=== PATIENT | male | born 1935 | race African-American/Black ===

== ENCOUNTER 2017-10-24 10:10 | Inpatient (IN) ==
[2017-10-24 13:45] LABS: Basophils % 0.3 % (0.0-0.8); Eosinophils # 0.6 10*3/uL (0.0-0.87); Eosinophils % 9.4 % (0.00-10.9); Hematocrit 35.1 VOL% (42.0-52.0); Immature Granulocytes % 0.3 %; Immature Granulocytes Absolute 0.02 #; Lymphocytes # 2.2 10*3/uL (1.4-4.0); Lymphocytes % 35.2 % (21.2-54.2); Mean Corpuscular HGB Conc 31.3 GM/DL (32-36); Mean Corpuscular Hemoglobin 34 PG (27-34); Mean Corpuscular Volume 108.7 FL (87-102); Mean Platelet Volume 10.4 FL (9.6-12.0); Monocytes # 0.8 10*3/uL (0.11-0.8); Monocytes % 12.2 % (1.7-12.7); Neutrophils # 2.6 10*3/uL (1.4-7.4); Neutrophils % 42.6 % (38.7-73.9); Platelet Count 185 T/CUMM (130-400); Red Blood Count 3.23 MC/CUMM (3.8-5.5); Red Cell Distribution Width 12.8 % (9.3-17.3); White Blood Count 6.1 T/CUMM (4-12)
[2017-10-24 13:56] LABS: PT Patient Result 10.4 SECS
[2017-10-24 14:18] LABS: Alanine Aminotransferase 15 U/L (16-61); Albumin 4.1 G/DL (3.4-5.0); Alkaline Phosphatase 89 U/L (45-117); Aspartate Amino Transferase 23 U/L (0-37); Bilirubin,Total < 0.39 MG/DL (0.2-1.0); Blood Urea Nitrogen 25 MG/DL (7-18); Calcium 9.4 MG/DL (8.5-10.1); Glucose 84 MG/DL (74-106); Osmolality,Calculated 279.5 MOS/KG (273-304); Sodium 139 MMOL/L (136-145); Total Protein 8.1 G/DL (6.4-8.3); Troponin I Only 0.377 NG/ML (0.00-0.045)
[2017-10-24] MEDS ORDERED: SODIUM CHLORIDE 0.9% 500 ML IV STA (14:19)
[2017-10-24] MEDS ORDERED: ALUM/MAG/SIMETH/LIDO VISC 1:1 30 ML BOTTLE PO STA (14:19)
[2017-10-24] MEDS ORDERED: ASPIRIN 325 MG TABLET PO STA (14:19)
[2017-10-24 14:20] LABS: Potassium 6.6 MMOL/L (3.5-5.1)
[2017-10-24] MEDS ORDERED: ASPIRIN 325 MG TABLET ONE (14:28)
[2017-10-24] MEDS ORDERED: ALUM/MAG/SIMETH/LIDO VISC 1:1 30 ML BOTTLE PO ONE (14:29)
[2017-10-24] MEDS ORDERED: CALCIUM CHLORIDE 1,000 MG/10 ML SYRINGE IV STA (14:51)
[2017-10-24 15:05] LABS: Calcium 9.4 MG/DL (8.5-10.1); Osmolality,Calculated 282.5 MOS/KG (273-304)
[2017-10-24] MEDS ORDERED: CALCIUM CHLORIDE 1,000 MG/10 ML SYRINGE IV ONE (15:05)
[2017-10-24] MEDS ORDERED: SODIUM POLYSTYRENE SULFATE 15 GM/60 ML BOTTLE PO STA (16:29)
[2017-10-24] MEDS ORDERED: SODIUM POLYSTYRENE SULFATE 15 GM/60 ML BOTTLE ONE (17:08)
[2017-10-24] MEDS ORDERED: ACETAMINOPHEN 325 MG TABLET PO PRN (17:11)
[2017-10-24] MEDS ORDERED: ONDANSETRON 4 MG/2 ML VIAL IV PRN (17:11)
[2017-10-24] MEDS ORDERED: BISACODYL 5 MG TABLET PO PRN (17:11)
[2017-10-24] MEDS ORDERED: MAGNESIUM SULF RIDER 2 GM in PREMIX 1 EACH IV PRN (17:11)
[2017-10-24] MEDS ORDERED: INSULIN REGULAR 100 UNIT/ML SUBCUT ONE (17:11)
[2017-10-24] MEDS ORDERED: POTASSIUM CHLORIDE 20 MEQ TABLET PO PRN (17:11)
[2017-10-24] MEDS ORDERED: MAGNESIUM HYDROXIDE SUSP 30 ML UDCUP PO PRN (17:11)
[2017-10-24] MEDS ORDERED: ENOXAPARIN 80 MG/0.8 ML SYRINGE SUBCUT STA (17:15)
[2017-10-24] MEDS ORDERED: ENOXAPARIN 80 MG/0.8 ML SYRINGE SUBCUT ONE (17:24)
[2017-10-24] MEDS ORDERED: TEMAZEPAM 15 MG CAPSULE PO PRN (17:25)
[2017-10-24] MEDS ORDERED: ATORVASTATIN 40 MG TABLET PO STA (17:27)
[2017-10-24] MEDS ORDERED: diphenhydrAMINE CAP 25 MG CAPSULE PO PRN (17:29)
[2017-10-24] MEDS ORDERED: DOCUSATE SODIUM 100 MG CAPSULE PO PRN (17:30)
[2017-10-24] MEDS ORDERED: NITROGLYCERIN 2% OINT 1 INCH/GM PACK TOP ONE (19:02)
[2017-10-24] MEDS ORDERED: ATORVASTATIN 40 MG TABLET ONE (19:02)
[2017-10-24] MEDS: NITROGLYCERIN 2% OINT 1 INCH/GM PACK TOP SCH (19:03)
[2017-10-24 19:29] LABS: Calcium 10.4 MG/DL (8.5-10.1); Osmolality,Calculated 280.5 MOS/KG (273-304)
[2017-10-24 19:33] LABS: Potassium 6.1 MMOL/L (3.5-5.1)
[2017-10-24] MEDS: GABAPENTIN 400 MG CAPSULE PO SCH (22:17)
[2017-10-24] MEDS: FLUTICASONE/SALMETEROL 250-50 DISKUS 14 DOSE INH SCH (22:58)
[2017-10-24] MEDS: SODIUM CHLORIDE 0.45% 1,000 ML IV SCH (22:58)
[2017-10-25 05:40] LABS: Basophils % 0.6 % (0.0-0.8); Eosinophils # 0.5 10*3/uL (0.0-0.87); Eosinophils % 9.9 % (0.00-10.9); Hematocrit 29.2 VOL% (42.0-52.0); Hemoglobin 9.3 GM/DL (14.0-18.0); Immature Granulocytes % 0.2 %; Immature Granulocytes Absolute 0.01 #; Lymphocytes # 2.7 10*3/uL (1.4-4.0); Lymphocytes % 49.6 % (21.2-54.2); Mean Corpuscular HGB Conc 31.8 GM/DL (32-36); Mean Corpuscular Hemoglobin 35 PG (27-34); Mean Corpuscular Volume 108.6 FL (87-102); Monocytes # 0.6 10*3/uL (0.11-0.8); Monocytes % 11.4 % (1.7-12.7); Neutrophils # 1.5 10*3/uL (1.4-7.4); Neutrophils % 28.3 % (38.7-73.9); Platelet Count 171 T/CUMM (130-400); Red Blood Count 2.69 MC/CUMM (3.8-5.5); Red Cell Distribution Width 12.7 % (9.3-17.3); White Blood Count 5.4 T/CUMM (4-12)
[2017-10-25 06:12] LABS: Band Neutrophils 1 % (0-10); Eosinophils 8 % (0-10); Lymphocytes 52 % (20-55); Platelet Estimate Normal; Segmented Neutrophils 33 % (50-85); Total Cells Counted 100
[2017-10-25 06:13] LABS: Macrocytosis 3+
[2017-10-25 06:23] LABS: Calcium 8.6 MG/DL (8.5-10.1); Osmolality,Calculated 282.4 MOS/KG (273-304); Risk Ratio 4.09; Thyroid Stimulating Hormone 1.92 uIU/ml (0.358-3.74); VLDL CHOLESTEROL 39.6 MG/DL
[2017-10-25 06:29] LABS: Potassium 6.3 MMOL/L (3.5-5.1)
[2017-10-25] MEDS ORDERED: SODIUM POLYSTYRENE SULFATE 15 GM/60 ML BOTTLE PO STA ×2 (07:44→08:22)
[2017-10-25] MEDS: OXYBUTYNIN XL 5 MG TABLET PO SCH (08:08)
[2017-10-25] MEDS: TAMSULOSIN 0.4 MG CAPSULE PO SCH (08:08)
[2017-10-25] MEDS: PANTOPRAZOLE 40 MG TABLET PO SCH (08:08)
[2017-10-25] MEDS: MAGNESIUM OXIDE 400 MG TABLET PO SCH (08:08)
[2017-10-25] MEDS: MONTELUKAST 10 MG TABLET PO SCH (08:08)
[2017-10-25] MEDS: CETIRIZINE 10 MG TABLET PO SCH (08:08)
[2017-10-25] MEDS: ASPIRIN EC 81 MG TABLET PO SCH (08:08)
[2017-10-25] MEDS: glyBURIDE 5 MG TABLET PO SCH (08:09)
[2017-10-25] MEDS: NITROGLYCERIN 2% OINT 1 INCH/GM PACK TOP SCH ×4 (08:19→18:39)
[2017-10-25] MEDS: SODIUM CHLORIDE 0.45% 1,000 ML IV SCH ×3 (08:20→19:15)
[2017-10-25 08:39] LABS: CKMB % 2.3 %
[2017-10-25 08:42] LABS: Troponin I Only 2.3 NG/ML (0.00-0.045)
[2017-10-25 08:50] LABS: Calcium 8.8 MG/DL (8.5-10.1); Osmolality,Calculated 282.4 MOS/KG (273-304)
[2017-10-25 08:54] LABS: Potassium 6.1 MMOL/L (3.5-5.1)
[2017-10-25] MEDS ORDERED: amLODIPine 5 MG TABLET PO SCH (09:00)
[2017-10-25] MEDS: CARVEDILOL 3.125 MG TABLET PO SCH ×2 (09:19→21:34)
[2017-10-25] MEDS: GABAPENTIN 400 MG CAPSULE PO SCH ×2 (09:19→21:34)
[2017-10-25] MEDS: FLUTICASONE/SALMETEROL 250-50 DISKUS 14 DOSE INH SCH ×2 (09:19→21:31)
[2017-10-25] MEDS ORDERED: ENOXAPARIN 80 MG/0.8 ML SYRINGE SUBCUT ONE (10:30)
[2017-10-26] MEDS: SODIUM CHLORIDE 0.45% 1,000 ML IV SCH ×3 (03:15→11:32)
[2017-10-26] MEDS: NITROGLYCERIN 2% OINT 1 INCH/GM PACK TOP SCH ×4 (04:50→18:51)
[2017-10-26 05:17] LABS: Basophils % 0.6 % (0.0-0.8); Eosinophils # 0.6 10*3/uL (0.0-0.87); Eosinophils % 9.7 % (0.00-10.9); Hematocrit 29.8 VOL% (42.0-52.0); Hemoglobin 9.3 GM/DL (14.0-18.0); Immature Granulocytes % 0.3 %; Immature Granulocytes Absolute 0.02 #; Lymphocytes # 2.9 10*3/uL (1.4-4.0); Lymphocytes % 46.6 % (21.2-54.2); Mean Corpuscular HGB Conc 31.2 GM/DL (32-36); Mean Corpuscular Hemoglobin 33 PG (27-34); Mean Corpuscular Volume 106.8 FL (87-102); Mean Platelet Volume 10.5 FL (9.6-12.0); Monocytes # 0.8 10*3/uL (0.11-0.8); Monocytes % 12.9 % (1.7-12.7); Neutrophils # 1.8 10*3/uL (1.4-7.4); Neutrophils % 29.9 % (38.7-73.9); Platelet Count 166 T/CUMM (130-400); Red Blood Count 2.79 MC/CUMM (3.8-5.5); Red Cell Distribution Width 12.4 % (9.3-17.3); White Blood Count 6.2 T/CUMM (4-12)
[2017-10-26 06:09] LABS: Calcium 8.4 MG/DL (8.5-10.1); Osmolality,Calculated 279.5 MOS/KG (273-304); Potassium 5.7 MMOL/L (3.5-5.1)
[2017-10-26 06:14] LABS: Eosinophils 15 % (0-10); Hypochromasia 1+; Lymphocytes 47 % (20-55); Segmented Neutrophils 28 % (50-85); Total Cells Counted 100
[2017-10-26 06:15] LABS: Platelet Estimate Adequate
[2017-10-26] MEDS: FLUTICASONE/SALMETEROL 250-50 DISKUS 14 DOSE INH SCH ×2 (09:03→20:55)
[2017-10-26] MEDS: MONTELUKAST 10 MG TABLET PO SCH (09:04)
[2017-10-26] MEDS: TAMSULOSIN 0.4 MG CAPSULE PO SCH (09:04)
[2017-10-26] MEDS: OXYBUTYNIN XL 5 MG TABLET PO SCH (09:04)
[2017-10-26] MEDS: MAGNESIUM OXIDE 400 MG TABLET PO SCH (09:04)
[2017-10-26] MEDS: ASPIRIN EC 81 MG TABLET PO SCH (09:04)
[2017-10-26] MEDS: GABAPENTIN 400 MG CAPSULE PO SCH ×2 (09:04→20:54)
[2017-10-26] MEDS: PANTOPRAZOLE 40 MG TABLET PO SCH (09:05)
[2017-10-26] MEDS: CETIRIZINE 10 MG TABLET PO SCH (09:05)
[2017-10-26] MEDS: CARVEDILOL 3.125 MG TABLET PO SCH ×2 (09:05→20:54)
[2017-10-26] MEDS: glyBURIDE 5 MG TABLET PO SCH ×2 (09:05→09:08)
[2017-10-26 11:10] LABS: Apearance,Urine CLEAR (Clear); Bilirubin,Urine Negative (Negative); Blood, Urine Negative (Negative); Glucose,Urine (UA) Negative (Negative); Ketones,Urine Negative (Negative); Nitrite,Urine Negative (Negative); Protein,Urine Negative; Squamous Epithelial Cell,Urine Occasional /HPF (0-10); Urine Color Straw (Yellow); Urine Specific Gravity 1.008 (1.001-1.035); Urine Urobilinogen < 2.0 EU/DL (0.2-1.0); WBC,Urine <1 /HPF (0-6)
[2017-10-27] MEDS: NITROGLYCERIN 2% OINT 1 INCH/GM PACK TOP SCH ×4 (01:19→17:41)
[2017-10-27 05:43] LABS: Basophils % 0.7 % (0.0-0.8); Eosinophils # 0.5 10*3/uL (0.0-0.87); Eosinophils % 7.9 % (0.00-10.9); Hematocrit 30.1 VOL% (42.0-52.0); Hemoglobin 9.8 GM/DL (14.0-18.0); Immature Granulocytes % 0.3 %; Immature Granulocytes Absolute 0.02 #; Lymphocytes # 2.7 10*3/uL (1.4-4.0); Lymphocytes % 44.4 % (21.2-54.2); Mean Corpuscular HGB Conc 32.6 GM/DL (32-36); Mean Corpuscular Hemoglobin 35 PG (27-34); Mean Platelet Volume 10.3 FL (9.6-12.0); Monocytes # 0.9 10*3/uL (0.11-0.8); Monocytes % 14.4 % (1.7-12.7); Neutrophils % 32.3 % (38.7-73.9); Platelet Count 174 T/CUMM (130-400); Red Blood Count 2.84 MC/CUMM (3.8-5.5); Red Cell Distribution Width 12.2 % (9.3-17.3); White Blood Count 6.1 T/CUMM (4-12)
[2017-10-27 06:04] LABS: Calcium 8.6 MG/DL (8.5-10.1); Osmolality,Calculated 286.1 MOS/KG (273-304); Potassium 5.2 MMOL/L (3.5-5.1)
[2017-10-27 07:28] LABS: Eosinophils 11 % (0-10); Lymphocytes 47 % (20-55); Macrocytosis 3+; Platelet Estimate Normal; Segmented Neutrophils 38 % (50-85); Total Cells Counted 100
[2017-10-27] MEDS: glyBURIDE 5 MG TABLET PO SCH (08:05)
[2017-10-27] MEDS: ASPIRIN EC 81 MG TABLET PO SCH (08:59)
[2017-10-27] MEDS: GABAPENTIN 400 MG CAPSULE PO SCH ×2 (08:59→21:22)
[2017-10-27] MEDS: CETIRIZINE 10 MG TABLET PO SCH (08:59)
[2017-10-27] MEDS: CARVEDILOL 3.125 MG TABLET PO SCH ×2 (09:00→21:22)
[2017-10-27] MEDS: MONTELUKAST 10 MG TABLET PO SCH (09:00)
[2017-10-27] MEDS: OXYBUTYNIN XL 5 MG TABLET PO SCH (09:00)
[2017-10-27] MEDS: TAMSULOSIN 0.4 MG CAPSULE PO SCH (09:00)
[2017-10-27] MEDS: MAGNESIUM OXIDE 400 MG TABLET PO SCH (09:00)
[2017-10-27] MEDS: PANTOPRAZOLE 40 MG TABLET PO SCH (09:00)
[2017-10-27] MEDS: FLUTICASONE/SALMETEROL 250-50 DISKUS 14 DOSE INH SCH ×2 (09:03→21:23)
[2017-10-28] MEDS: NITROGLYCERIN 2% OINT 1 INCH/GM PACK TOP SCH ×5 (01:25→23:11)
[2017-10-28 04:57] LABS: Basophils % 0.5 % (0.0-0.8); Eosinophils # 0.6 10*3/uL (0.0-0.87); Eosinophils % 7.2 % (0.00-10.9); Hematocrit 31.2 VOL% (42.0-52.0); Hemoglobin 10.5 GM/DL (14.0-18.0); Immature Granulocytes % 0.3 %; Immature Granulocytes Absolute 0.02 #; Lymphocytes # 3.2 10*3/uL (1.4-4.0); Lymphocytes % 41.6 % (21.2-54.2); Mean Corpuscular HGB Conc 33.7 GM/DL (32-36); Mean Corpuscular Hemoglobin 35 PG (27-34); Mean Platelet Volume 10.6 FL (9.6-12.0); Monocytes # 1.1 10*3/uL (0.11-0.8); Monocytes % 14.7 % (1.7-12.7); Neutrophils # 2.7 10*3/uL (1.4-7.4); Neutrophils % 35.7 % (38.7-73.9); Platelet Count 194 T/CUMM (130-400); Red Blood Count 3.03 MC/CUMM (3.8-5.5); Red Cell Distribution Width 12.5 % (9.3-17.3); White Blood Count 7.7 T/CUMM (4-12)
[2017-10-28 05:22] LABS: Eosinophils 9 % (0-10); Giant Platelets Few; Hypochromasia 1+; Lymphocytes 34 % (20-55); Ovalocytes Slight; Platelet Estimate Adequate; Segmented Neutrophils 39 % (50-85); Total Cells Counted 100
[2017-10-28 05:26] LABS: Calcium 8.9 MG/DL (8.5-10.1); Osmolality,Calculated 281.8 MOS/KG (273-304); Potassium 4.9 MMOL/L (3.5-5.1)
[2017-10-28] MEDS ORDERED: POTASSIUM CHLORIDE RIDER 10 MEQ in PREMIX 1 EACH IV PRN (08:04)
[2017-10-28] MEDS ORDERED: MAGNESIUM SULF RIDER 2 GM in PREMIX 1 EACH IV PRN (08:04)
[2017-10-28] MEDS: FLUTICASONE/SALMETEROL 250-50 DISKUS 14 DOSE INH SCH ×2 (08:21→21:15)
[2017-10-28] MEDS: ASPIRIN EC 81 MG TABLET PO SCH (08:21)
[2017-10-28] MEDS: MAGNESIUM OXIDE 400 MG TABLET PO SCH (08:21)
[2017-10-28] MEDS: CARVEDILOL 3.125 MG TABLET PO SCH ×2 (08:21→21:16)
[2017-10-28] MEDS: PANTOPRAZOLE 40 MG TABLET PO SCH (08:21)
[2017-10-28] MEDS: MONTELUKAST 10 MG TABLET PO SCH (08:21)
[2017-10-28] MEDS: CETIRIZINE 10 MG TABLET PO SCH (08:21)
[2017-10-28] MEDS ORDERED: SODIUM CHLORIDE 0.9% 1,000 ML IV SCH (08:30)
[2017-10-28] MEDS ORDERED: diphenhydrAMINE CAP 25 MG CAPSULE PO ONE (10:30)
[2017-10-28] MEDS ORDERED: DIAZEPAM 5 MG TABLET PO ONE (10:30)
[2017-10-28] MEDS ORDERED: HEPARIN/NACL 0.9% 2 UNITS/ML 2,000 ML IV ONE (10:53)
[2017-10-28] MEDS ORDERED: MIDAZOLAM 2 MG/2 ML VIAL ONE (10:59)
[2017-10-28] MEDS ORDERED: LIDOCAINE 1% 20 ML VIAL ONE (10:59)
[2017-10-28] MEDS ORDERED: fentaNYL 100 MCG/2 ML VIAL ONE (10:59)
[2017-10-28] MEDS ORDERED: HEPARIN 5,000 UNIT/1 ML VIAL ONE (11:22)
[2017-10-28] MEDS ORDERED: EPTIFIBATIDE 20,000 MCG/10 ML VIAL ONE (11:26)
[2017-10-28] MEDS ORDERED: EPTIFIBATIDE 75 MG/100 ML BOTTLE IV ONE (11:26)
[2017-10-28] MEDS ORDERED: TICAGRELOR 90 MG TABLET ONE (11:45)
[2017-10-28] MEDS: OXYBUTYNIN XL 5 MG TABLET PO SCH (12:57)
[2017-10-28] MEDS: glyBURIDE 5 MG TABLET PO SCH (12:58)
[2017-10-28] MEDS: GABAPENTIN 400 MG CAPSULE PO SCH ×2 (12:58→21:16)
[2017-10-28] MEDS: TAMSULOSIN 0.4 MG CAPSULE PO SCH (12:58)
[2017-10-28] MEDS: SODIUM CHLORIDE 0.9% 1,000 ML IV SCH (12:58)
[2017-10-28] MEDS ORDERED: ATORVASTATIN 40 MG TABLET PO SCH (21:00)
[2017-10-28] MEDS ORDERED: ATORVASTATIN 20 MG TABLET PO SCH (21:00)
[2017-10-29 04:46] LABS: Basophils % 0.5 % (0.0-0.8); Eosinophils # 0.4 10*3/uL (0.0-0.87); Eosinophils % 6.4 % (0.00-10.9); Hematocrit 32.5 VOL% (42.0-52.0); Hemoglobin 10.5 GM/DL (14.0-18.0); Immature Granulocytes % 0.2 %; Immature Granulocytes Absolute 0.01 #; Lymphocytes # 2.4 10*3/uL (1.4-4.0); Lymphocytes % 36.2 % (21.2-54.2); Mean Corpuscular HGB Conc 32.3 GM/DL (32-36); Mean Corpuscular Hemoglobin 35 PG (27-34); Mean Corpuscular Volume 106.9 FL (87-102); Mean Platelet Volume 10.5 FL (9.6-12.0); Monocytes % 15.3 % (1.7-12.7); Neutrophils # 2.7 10*3/uL (1.4-7.4); Neutrophils % 41.4 % (38.7-73.9); Platelet Count 181 T/CUMM (130-400); Red Blood Count 3.04 MC/CUMM (3.8-5.5); Red Cell Distribution Width 12.7 % (9.3-17.3); White Blood Count 6.5 T/CUMM (4-12)
[2017-10-29 05:14] LABS: Calcium 8.8 MG/DL (8.5-10.1); Osmolality,Calculated 289.4 MOS/KG (273-304); Potassium 4.9 MMOL/L (3.5-5.1)
[2017-10-29] MEDS: NITROGLYCERIN 2% OINT 1 INCH/GM PACK TOP SCH (05:44)
[2017-10-29] MEDS: SODIUM CHLORIDE 0.9% 1,000 ML IV SCH (06:20)
[2017-10-29] MEDS ORDERED: TICAGRELOR 90 MG TABLET PO SCH (09:00)
[2017-10-29] MEDS: OXYBUTYNIN XL 5 MG TABLET PO SCH (10:27)
[2017-10-29] MEDS: CETIRIZINE 10 MG TABLET PO SCH (10:27)
[2017-10-29] MEDS: PANTOPRAZOLE 40 MG TABLET PO SCH (10:27)
[2017-10-29] MEDS: TAMSULOSIN 0.4 MG CAPSULE PO SCH (10:28)
[2017-10-29] MEDS: MAGNESIUM OXIDE 400 MG TABLET PO SCH (10:28)
[2017-10-29] MEDS: ASPIRIN EC 81 MG TABLET PO SCH (10:28)
[2017-10-29] MEDS: FLUTICASONE/SALMETEROL 250-50 DISKUS 14 DOSE INH SCH (10:28)
[2017-10-29] MEDS: MONTELUKAST 10 MG TABLET PO SCH (10:28)
[2017-10-29] MEDS: CARVEDILOL 3.125 MG TABLET PO SCH (10:28)
[2017-10-29] MEDS: GABAPENTIN 400 MG CAPSULE PO SCH (10:31)
[2017-10-29] MEDS: glyBURIDE 5 MG TABLET PO SCH (10:31)
[2017-10-29 11:42] VITALS: BP 140/66
== END 2017-10-29 13:59 | disposition home or self-care (01) | DRG 251 ==
LOC: N.ED 10:10 → N.EDINP 17:36 → N.TELEN 19:09
PROVIDERS: ADMIT Internal Medicine Cardiovascular Disease; ATTEND Internal Medicine Cardiovascular Disease
PROC: CLCCHCL (ICD-10-PCS; 2017-10-28 11:15)